=== PATIENT | male | born 1970 | race Caucasian/White ===

== ENCOUNTER 2024-05-13 19:47 | Emergency (ER) | payer BC, OTHER ==
[~2024-05-13] VITALS: Ht 175.3 cm; Wt 86.4 kg
[2024-05-13 19:57] VITALS: PULSE 169; RESP 24; O2SAT 95
[2024-05-13] MEDS: AMIODARONE BOLUS KIT 100 ML IV ONE (20:05)
[2024-05-13 20:14] LABS: Basophils # (auto) 0.1 10 ^3/uL (0-0.2); Basophils % (auto) 0.9 % (0.0-2.0); Eosinophils # (auto) 0.1 10 ^3/uL (0-0.8); Eosinophils % (auto) 1.8 % (0.0-7.0); Hemoglobin 14.1 g/dL (13.5-17.5); Lymphocytes # (auto) 2.3 10 ^3/uL (0.4-5.4); Lymphocytes % (auto) 36.5 % (10.0-50.0); Mean Corpuscular Hemoglobin 30.9 pg (28.0-32.0); Mean Corpuscular Hgb Conc. 33.5 g/dL (32.0-36.0); Mean Corpuscular Volume 92.3 fL (80.0-100.0); Monocytes # (auto) 0.6 10 ^3/uL (0-1.3); Neutrophils # (auto) 3.2 10 ^3/uL (1.6-8.6); Neutrophils % (auto) 50.8 % (37.0-80.0); Red Blood Cells 4.55 10^6/uL (4.5-5.90); Red Cell Distribution Width 13.6 % (11.8-14.3); White Blood Cell 6.3 10^3/uL (4.4-10.8)
[2024-05-13] MEDS: AMIODARONE 450mg/250ml AE 250 ML IV SCH (20:32)
[2024-05-13 20:39] LABS: Alanine Aminotransferase 20 U/L (7-40); Albumin 3.8 g/dL (3.2-4.8); Alkaline Phosphatase 73 U/L (46-116); Anion Gap 6 (5-15); Aspartate Aminotransferase < 8 U/L (13-40); Bilirubin, Total 0.3 mg/dL (0.2-1.0); Blood Urea Nitrogen 11 mg/dL (9-23); Calcium 8.9 mg/dL (8.7-10.4); Carbon Dioxide 24 mmol/L (20-30); Chloride 110 mmol/L (98-107); Glucose 149 mg/dL (74-106); Potassium 3.9 mmol/L (3.5-5.1); Sodium 140 mmol/L (136-145); Total Protein 5.9 g/dL (5.7-8.2)
[2024-05-13] MEDS: SODIUM CHLORIDE 0.9% 1,000 ML IV ONE (20:40)
[2024-05-13] MEDS: LIDOCAINE HCL 100 MG/5ML (2%) SYRG INJ IV ONE (21:11)
[2024-05-13] MEDS: KETAMINE 50mg/ML 10ml Vial (500mg/10ml) IV ONE (21:32)
[2024-05-14] MEDS ORDERED: AMIO200T33 PO (00:06)
[2024-05-14] MEDS ORDERED: ATOR10TA52 (00:26)
[2024-05-14] MEDS ORDERED: METO25TA93 (00:26)
[2024-05-14] MEDS ORDERED: ASPI-325 (00:26)
[2024-05-14] MEDS ORDERED: FOLI-119 (00:26)
[2024-05-14] MEDS ORDERED: LISI2.5T47 (00:26)
[2024-05-14] MEDS ORDERED: PANT40T (00:26)
[2024-05-14] MEDS ORDERED: ASPI-628 (00:26)
[2024-05-14] MEDS ORDERED: CLOP75TA70 (00:26)
[2024-05-14 02:00] VITALS: BP 104/70; PULSE 92; RESP 18; O2SAT 98
[2024-05-14] MEDS: AMIODARONE 450mg/250ml AE 250 ML IV SCH (02:15)
== END 2024-05-14 03:01 | disposition home or self-care (01) ==
LOC: ER 19:47 → EDBD 19:47 → ER 05-14 03:01
DX: I50.9 Heart failure, unspecified (principal); I47.20 Ventricular tachycardia, unspecified; R00.2 Palpitations; Z98.890 Other specified postprocedural states
CPT/HCPCS: 36415; 71045; 80053; 83735; 83880; 84484; 85025; 93005; 96365; 96366; 96376; 99285; J0282